=== PATIENT | male | born 1950 | race Two or more races ===

== ENCOUNTER 2019-03-14 00:31 | Emergency (ER) | payer OTHER ==
[2019-03-14 00:56] VITALS: TEMP 98.6; BMI 27.4
[2019-03-14] MEDS ORDERED: ONDANSETRON 4 MG/2 ML VIAL IVPB ONE (01:33)
[2019-03-14] MEDS ORDERED: ONDANSETRON 4 MG/2 ML VIAL ONE (01:36)
[2019-03-14 02:04] LABS: BASO % 0.7 % (0-2.0); EOS % 1.4 % (0-4.5); HEMATOCRIT 42.7 % (35.4-49); HEMOGLOBIN 13.7 GM/dL (11.7-16.9); LYMPH % 11.6 % (8-40); MCHC 32.2 g/dl (32.0-35.9); MEAN CELL VOLUME 83.9 fl (80-96); MONO % 7.4 % (3.8-10.2); NEUT % 78.9 % (42.8-82.8); PLATELET COUNT 203 K/MM3 (134-434); RBC 5.09 M/mm3 (4.00-5.60); RDW 14.1 % (11.9-15.9); WHITE BLOOD COUNT 11.2 K/mm3 (4.0-10.0)
[2019-03-14] MEDS ORDERED: FAMOTIDINE 20 MG/50 ML IVPB 20 MG/50 ML MG IVPB ONE ×2 (02:14→02:17)
[2019-03-14] MEDS ORDERED: amLODIPine BESYLATE 5 MG TABLET (FP) PO ONE (02:14)
[2019-03-14] MEDS ORDERED: CARVEDILOL 25 MG TABLET (FP) PO ONE (02:14)
[2019-03-14 02:15] LABS: INR 0.97 (0.83-1.09); PROTHROMBIN TIME (PATIENT) 11.5 SEC (9.7-13.0)
[2019-03-14] MEDS ORDERED: amLODIPine BESYLATE 5 MG TABLET (FP) ONE (02:16)
--- NOTE | 2019-03-14 02:16 | PDOC ---
History of Present Illness - General Chief Complaint: Blood Pressure Problem Stated Complaint: HIGH BLOOD PRESSURE Time Seen by Provider: 03/14/19 00:56 - History of Present Illness Initial Comments: Nicanor Castle is a 68yo man with a PMH of HTN, HLD, s/p right lobectomy with subsequent chronic hypoxia (sats 92% on RA at baseline) who presents reporting hypertension at home today after forgetting his medications. He reports that he came to [place] to visit his daughter, and he accidentally did not bring his BP meds. Mr Castle states that he had an incident of "choking" during dinner, after which he felt nauseated. He checked his oxygen sats and blood pressure due to feeling unwell, and he noticed that his BP was in the 160's. He became concerned when he realized he had forgotten his meds at home. His daughter attempted to get a prescription sent to the pharmacy by the pt's PMD but was unable to do so, so she brought him to the ED. After realizing his blood pressure was higher than normal, Mr Castle also began to feel a dull, left-sided chest pain and to experience a headache. He attributed these to the hypertension. The symptoms started about 3 hours prior to arrival in the ED and have since resolved. Past History - Past Medical History Allergies/Adverse Reactions: Allergies Allergy/AdvReac Type Severity Reaction Status Date / Time No Known Allergies Allergy Verified 03/14/19 00:56 Home Medications: Ambulatory Orders Amlodipine Besylate 5 mg PO HS #15 tablet 03/14/19 Amlodipine Besylate [Norvasc -] 10 mg PO DAILY 03/14/19 Carvedilol 12.5 mg PO BID #15 tablet 03/14/19 Carvedilol [Coreg -] 25 mg PO DAILY 03/14/19 - Psycho Social/Smoking Cessation Hx Smoking History: Unknown if ever smoked Have you smoked in the past 12 months: No Information on smoking cessation initiated: No Hx Alcohol Use: No Drug/Substance Use Hx: No Review of Systems - Review of Systems Comments:: General: No fevers, no chills, no weight or appetite change, no malaise HEENT: No changes in vision, no changes in hearing, no congestion, no sore throat CV: See HPI Pulm: No SOB, no cough, no wheezing GI: No nausea or vomiting, no change in bowel habits, no melena : No frequency, no urgency, no dysuria Musc: No back pain, no joint swelling, no recent injury Skin: No rash, no lesions, no erythema Endo: No excessive thirst, no heat/cold intolerance Heme: No unusual bruising or bleeding, no swollen glands Neuro: No syncope, no numbness/tingling, no focal weakness Vasc: No claudication Psych: No recent change in mood, no SI or HI. h/o anxiety *Physical Exam - Vital Signs Last Vital Signs Temp Pulse Resp BP Pulse Ox 98.6 F 102 H 18 160/98 93 L 03/14/19 00:47 03/14/19 00:47 03/14/19 00:47 03/14/19 00:47 03/14/19 01:01 - Physical Exam General: Comfortable, no acute distress HEENT: PERRL, EOMI, MMM, voice normal, normal neck ROM Cards: RRR, no murmur appreciated Pulm: Comfortable on room air, clear to auscultation bilaterally Abd: Soft, nontender, nondistended Ext: Atraumatic. No LE edema. ROM intact. WWP Skin: Normal color, no rashes or lesions Neuro: A&Ox3, CN grossly intact, normal speech, motor/sensory grossly intact and symmetric Psych: Appears anxious ED Treatment Course - LABORATORY CBC & Chemistry Diagram: 03/14/19 01:25 03/14/19 01:25 - ADDITIONAL ORDERS Additional order review: Laboratory Results 03/14/19 01:25 PT with INR 11.50 INR 0.97 - Medications Given in the ED: ED Medications Discontinued Medications Generic Name Dose Route Start Last Admin Trade Name Stephanq PRN Reason Stop Dose Admin Ondansetron HCl 4 mg 03/14/19 01:33 03/14/19 01:38 Zofran Injection IVPB 03/14/19 01:34 4 mg ONCE ONE Administration Medical Decision Making - Medical Decision Making 03/14/19 02:15 Nicanor Castle is a 68yo man with a PMH of HTN, HLD, s/p right lobectomy with subsequent chronic hypoxia (sats 92% on RA at baseline) who presents reporting hypertension at home today after forgetting his medications. He also reports dull left-sided chest pain that started after he realized his BP was high; it has since resolved. - BP in 160/90's. Hypertension, but most likely due to missing meds. Unlikely to cause any end organ effects. Will give home carvedilol and amlodipine and recheck - Chest pain has since resolved, but will send CBC, CMP, trop, EKG to rule out ACS - Advised patient that he will likely stay for a repeat troponin; pt reluctant to stay. As pain started 3-4 hours ago, one negative trop should be OK to discharge home. Pt states he has cardiology follow up on 03/18/19. 03/14/19 02:49 - Labs reviewed. No concerning abnormalities. Trop negative - Will d/c home to follow up with his PMD Discussed with Dr Yen Heredia PGY2 Discharge - Discharge Information Problems reviewed: Yes Clinical Impression/Diagnosis: Chest pain in adult Hypertension Qualifiers: Hypertension type: unspecified Qualified Code(s): I10 - Essential (primary) hypertension Condition: Stable Disposition: HOME - Admission No - Follow up/Referral Referrals: ON STAFF,NOT [Non Staff, Medical] - - Patient Discharge Instructions Patient Printed Discharge Instructions: DI for High Blood Pressure, DI for Chest Pain Additional Instructions: Discharge Instructions: You were seen in the emergency department for high blood pressure and chest pain after missing your home medication. You had an EKG, chest xray, and blood tests. There were no concerning findings. Home Care and Follow Up: - Continue to take all of your home medications as directed - Follow up with your regular doctor within the next 3-4 days - Make sure you go to your cardiology appointment scheduled for next week - Seek immediate care for worsening symptoms, chest pain with exercise, difficulty breathing, or any other medical emergency. - Post Discharge Activity
[2019-03-14] MEDS ORDERED: CARVEDILOL 12.5 MG TABLET (FP) ONE (02:17)
--- NOTE | 2019-03-14 02:21 | PDOC ---
Attending Attestation - Resident Resident Name: Marry Heredia - ED Attending Attestation I have performed the following: I have examined & evaluated the patient, The case was reviewed & discussed with the resident, I agree w/resident's findings & plan - Physicial Exam PE: 03/14/19 02:20 Agree with the resident's HPI and PE as documented in the electronic medical record. NAD, well appearing, EOMI, PERRL, nl conjunctiva, anicteric; neck supple. lungs clear, RRR, abdomen soft nontender. No rebound, no guarding. Back nontender. URIBE x4, no focal neuro deficits. No peripheral edema. normal color for ethnicity , WWP. - Medical Decision Making 03/14/19 02:20 Vital Signs Temp Pulse Resp BP Pulse Ox 98.6 F 102 H 18 160/98 93 L 03/14/19 00:47 03/14/19 00:47 03/14/19 00:47 03/14/19 00:47 03/14/19 01:01 Heart Score/ECG Review #1 ECG reviewed & interpreted by me at: 00:55 General ECG Interpretation: Sinus Rhythm, Normal Rate, Normal Intervals Compared to previous ECG there are: Previous ECG unavail 03/14/19 02:21 EKG normal sinus rhythm at 99 bpm, no interval abnormalities, narrow QRS, ST and T wave segments and morphology normal. Nonspecific T wave abnormalities
[2019-03-14 02:44] LABS: ALBUMIN 3.9 g/dl (3.4-5.0); BILIRUBIN,TOTAL 0.5 mg/dL (0.2-1); BLOOD UREA NITROGEN 14.9 mg/dL (7-18); CALCIUM 9.4 mg/dL (8.5-10.1); CREATININE 1.3 mg/dL (0.55-1.3); POTASSIUM 3.7 mmol/L (3.5-5.1); TOT PROT 7.1 g/dl (6.4-8.2)
[2019-03-14 02:58] VITALS: BP 152/86; PULSE 104
--- NOTE | 2019-03-14 11:50 | EKG ---
Test Reason : Blood Pressure : / mmHG Vent. Rate : 099 BPM Atrial Rate : 099 BPM P-R Int : 196 ms QRS Dur : 090 ms QT Int : 340 ms P-R-T Axes : 049 -15 054 degrees QTc Int : 436 ms NORMAL SINUS RHYTHM NORMAL ECG NO PREVIOUS ECGS AVAILABLE Confirmed by FREDIS HERNANDEZ MD ([id number]) on 03/14/2019 11:50:26 AM Referred By: Confirmed By:FREDIS HERNANDEZ MD
== END 2019-03-14 03:23 | disposition home or self-care (01) ==
LOC: JER 00:31
PROC: 3E033GC Introduction of Other Therapeutic Substance into Peripheral Vein, Percutaneous Approach (ICD-10-PCS; principal; 2019-03-14)
DX: I10 Essential (primary) hypertension (principal); R07.9 Chest pain, unspecified
CPT/HCPCS: 36415; 71045-TC-FY; 80053; 82550; 83690; 84484; 85025; 85610; 93005; 93010; 99283-25